=== PATIENT | female | born 1990 | race Asian ===

== ENCOUNTER 2018-08-27 10:11 | Emergency (ER) | payer BC ==
[~2018-08-27] VITALS: Ht 152.4 cm; Wt 56.7 kg
== END 2018-08-27 11:01 | disposition home or self-care (01) ==
LOC: FSED 10:11
DX: R50.9 Fever, unspecified (principal); R05 Cough; J11.1 Influenza due to unidentified influenza virus with other respiratory manifestations
CPT/HCPCS: 87400; 99283

== ENCOUNTER 2019-04-08 21:17 | Emergency (ER) | payer BC ==
[~2019-04-08] VITALS: Ht 152.4 cm; Wt 56.7 kg
--- OUTSIDE RECORDS SUMMARY | 2019-04-08 21:21 | XMS REPORT ---
Author Author [facility] Address Unknown Phone Unavailable Care Team Providers Care Type Cutter Name Role Phone Unavailable Unavailable Payers Payer Name Policy Type Policy Number Effective Date Expiration Date Problems This patient has no known problems. Allergies, Adverse Reactions, Alerts Allergy Name Allergy Type Status Severity Reaction(s) Onset Date Inactive Date Treating Clinician Comments No Known Allergies DA Active U 2018-12-20 00:00:00 penicillin G DA Active MO 2018-12-20 00:00:00 No Known Allergies DA Active U 2014-12-05 00:00:00 Medications This patient has no known medications. Results Test Description Test Time Test Comments Text Results Atomic Results Result Comments [facility] 2018-12-26 17:06:00 RUN DATE: 12/26/18 Spinal [place] PAGE 1 RUN TIME: 1706 Specimen Inquiry RUN USER: INTERFACE PATIENT: AMY MARIE LOC: [place] U #: [id number] AGE/SX: 28/F [facility]: Padmini Gomez MD : 91 BED: A DIS: 12/22/18 STATUS: DIS IN TLOC: SPEC #: [id number] RECD: 12/25/18 STATUS: [place] RE #: [id number] VINCE: 12/21/18- [facility] DR: Padmini Gomez MD ENTERED: 12/25/18 SP TYPE: OTHR DR: ORDERED: GROSS PROCEDURES: GROSS (12/26/18 133) TISSUES: PRODUCTS OF CONCEPTION, NOS CLINICAL HISTORY COLLECTION DATE: 12/21/18 IUP 16 3/7 WEEKS FINAL DIAGNOSIS Products of conception: SECOND TRIMESTER PLACENTA WITH MILD PERIVILLOUS FIBRINOID DEPOSITION NO VILLITIS OR INFARCTION PRESENT TRIVASCULAR UMBILICAL CORD, FREE OF INFLAMMATION MEMBRANES, FREE OF INFLAMMATION NEGATIVE FOR MALIGNANCY Fetus, passage: FETUS WITH EXTERNAL GENITALIA COMPATIBLE WITH IMMATURE FEMALE NO GROSS CONGENITAL ANOMALIES IDENTIFIED APPROXIMATELY 17 WEEKS ESTIMATED GESTATIONAL AGE BY MEASUREMENTS 16 3/7 WEEKS ESTIMATED GESTATIONAL AGE BY DATES RRB/marquita D [id number], [id number] MACROSCOPIC The specimen is received in formalin, labeled with the patient's name, and identified as "products of conception". The specimen consists of a 10 X 7 X 2 cm placental disc with bland, thickened, and opaque membranes. The placental disc weighs 96.4 gm with the membranes and umbilical cord removed. The surface is steel blue, wrinkled, and glistening and displays an unremarkable vasculature. The maternal surface is lobulated and intact. Serial sectioning displays homogenous and maroon spongy tissue. The trivascular umbilical cord measures 27 cm in length with a diameter of 0.7 cm and inserts 1.5 cm from the CONTINUED ON NEXT PAGE RUN DATE: 12/26/18 [facility] PAGE 2 RUN TIME: 1706 Specimen Inquiry RUN USER: INTERFACE SPEC #: [id number] PATIENT: AMY MARIE #[id number] (Continued) MACROSCOPIC (Continued) closest placental edge. No knots are present in the cord. The placenta is focally disrupted and the membranes appears to be incomplete. Received in the same container is a macerated immature fetus with no gross abnormalities. It measures as follow: crown rump 12.3, foot 1.9 cm head circumference of 8.5 cm. There is an attached umbilical cord with cord clamp. The cord measures 1.0 cm in length. The skin is dark bland with sloughing over the cranium and back. The abdominal wall is disrupted at the umbilicus which appears to be an artifactual defect. Intestinal loops protrude from the defect. The face is normally formed. The upper and lower extremeties are normally formed. The spine is straight with no defect. The external genitalia are compatible with an immature female. No gross malformations are identified. No sections of the fetus are submitted. Section code: 1A- membranes, maternal and ends of cord; 1B 1C- full thickness of placenta. GROSS PERFORMED AT [facility] [address] [place] [address] [phone])[phone] MICROSCOPIC All of the stains, including any controls performed, stain appropriately. MICROSCOPIC PERFORMED AT [facility] [address] [place] [address] [phone])[phone] PERFORMING SITE Diagnosis performed at: [facility], [address] [place] [address] Signed SIGNATURE ON FILE Salo Mendez MD 12/26/18 1700 END OF REPORT CBC W/AUTO DIFF 2018-12-22 06:09:00 WHITE BLOOD CELL (test code=WBC) 23.8 K/mm3 4.5-12.5 RED BLOOD CELL (test code=RBC) 3.79 mill/mm3 3.7-5.2 HEMOGLOBIN (test code=HGB) 11.0 gram/dL 11.5-15.5 HEMATOCRIT (test code=HCT) 33.1 % 36.0-46.0 MEAN CELL VOLUME (test code=MCV) 87.3 fL 80-98 MEAN CELL HGB (test code=MCH) 29.0 picogram 27.0-33.0 MEAN CELL HGB CONCETRATION (test code=MCHC) 33.2 gram/dL 33.0-36.0 RED CELL DISTRIBUTION WIDTH (test code=RDW) 12.2 % 11.6-16.2 RED CELL DISTRIBUTION WIDTH SD (test code=RDW-SD) 39.1 fL 37.0-51.0 PLATELET COUNT (test code=PLT) 253 K/mm3 150-450 RESULT VERIFIED BY REPEAT ANALYSIS MEAN PLATELET VOLUME (test code=MPV) 9.8 fL 6.7-11.0 NEUTROPHIL % (test code=NT%) 78.7 % 39.0-69.0 IMMATURE GRANULOCYTE % (test code=IG%) 0.5 % 0.0-5.0 LYMPHOCYTE % (test code=LY%) 14.0 % 25.0-55.0 MONOCYTE % (test code=MO%) 6.1 % 0.0-10.0 EOSINOPHIL % (test code=EO%) 0.5 % 0.0-5.0 BASOPHIL % (test code=BA%) 0.2 % 0.0-1.0 NUCLEATED RBC % (test code=NRBC%) 0.0 % 0-0 NEUTROPHIL # (test code=NT#) 18.69 K/mm3 1.8-7.7 IMMATURE GRANULOCYTE # (test code=IG#) 0.13 x10 3/uL 0-0.03 LYMPHOCYTE # (test code=LY#) 3.33 K/mm3 1.0-5.0 MONOCYTE # (test code=MO#) 1.46 K/mm3 0-0.8 EOSINOPHIL # (test code=EO#) 0.11 K/mm3 0.0-0.5 BASOPHIL # (test code=BA#) 0.05 K/mm3 0.0-0.2 NUCLEATED RBC # (test code=NRBC#) 0.00 K/mm3 0.0-0.1 MANUAL DIFF REQUIRED (test code=MDIFF) NO URINALYSIS [id number] 09:07:00* Test Item Value Reference Range Comments UA COLOR (test code=COLU) YELLOW YELLOW UA APPEARANCE (test code=APPU) Cloudy CLEAR UA GLUCOSE DIPSTICK (test code=DGLUU) NEGATIVE mg/dL NEGATIVE UA BILIRUBIN DIPSTICK (test code=BILU) NEGATIVE mg/dL NEGATIVE UA KETONE DIPSTICK (test code=KETU) NEGATIVE mg/dL NEGATIVE UA SPECIFIC GRAVITY (test code=SGU) 1.014 1.001-1.035 UA BLOOD DIPSTICK (test code=HUSSAIN) 3+ (Large) mg/dL NEGATIVE UA PH DIPSTICK (test code=DESTINY) 8.0 5.0-8.0 UA PROTEIN DIPSTICK (test code=PROU) NEGATIVE mg/dL NEGATIVE UA UROBILINIOGEN DIPSTICK (test code=URO) NEGATIVE mg/dL NEGATIVE UA NITRITE DIPSTICK (test code=ISRA) NEGATIVE NEGATIVE UA LEUKOCYTE ESTERASE W REFLEX (test code=LEUUR) NEGATIVE Clinton/uL NEGATIVE UA WBC (test code=WBCU) 0-5 per HPF 0-5 UA RBC (test code=RBCU) 3-5 #/HPF 0-5 UA WBC CLUMPS (test code=WBCUCL) 3-6 /HPF NONE UA EPITHELIAL CELLS (test code=EPIU) FEW per HPF FEW UA BACTERIA (test code=BACU) MANY #/HPF NONE UA RENAL CELLS (test code=BOYD) 6-10 #/HPF 0-5 UA AMORPHOUS SEDIMENT (test code=AMORU) MANY #/LPF NONE Urine Source? Clean CatchURINALYSIS [id number] 09:01:00* Test Item Value Reference Range Comments UA COLOR (test code=COLU) YELLOW YELLOW UA APPEARANCE (test code=APPU) Cloudy CLEAR UA GLUCOSE DIPSTICK (test code=DGLUU) NEGATIVE mg/dL NEGATIVE UA BILIRUBIN DIPSTICK (test code=BILU) NEGATIVE mg/dL NEGATIVE UA KETONE DIPSTICK (test code=KETU) NEGATIVE mg/dL NEGATIVE UA SPECIFIC GRAVITY (test code=SGU) 1.014 1.001-1.035 UA BLOOD DIPSTICK (test code=HUSSAIN) 3+ (Large) mg/dL NEGATIVE UA PH DIPSTICK (test code=DESTINY) 8.0 5.0-8.0 UA PROTEIN DIPSTICK (test code=PROU) NEGATIVE mg/dL NEGATIVE UA UROBILINIOGEN DIPSTICK (test code=URO) NEGATIVE mg/dL NEGATIVE UA NITRITE DIPSTICK (test code=ISRA) NEGATIVE NEGATIVE UA LEUKOCYTE ESTERASE W REFLEX (test code=LEUUR) NEGATIVE Clinton/uL NEGATIVE UA WBC (test code=WBCU) per HPF 0-5 UA RBC (test code=RBCU) 3-5 #/HPF 0-5 UA WBC CLUMPS (test code=WBCUCL) 3-6 /HPF NONE UA EPITHELIAL CELLS (test code=EPIU) FEW per HPF FEW UA BACTERIA (test code=BACU) MANY #/HPF NONE UA RENAL CELLS (test code=BOYD) 6-10 #/HPF 0-5 UA AMORPHOUS SEDIMENT (test code=AMORU) MANY #/LPF NONE Urine Source? Clean CatchURINALYSIS [id number] 08:43:00* Test Item Value Reference Range Comments UA COLOR (test code=COLU) YELLOW YELLOW UA APPEARANCE (test code=APPU) Cloudy CLEAR UA GLUCOSE DIPSTICK (test code=DGLUU) NEGATIVE mg/dL NEGATIVE UA BILIRUBIN DIPSTICK (test code=BILU) NEGATIVE mg/dL NEGATIVE UA KETONE DIPSTICK (test code=KETU) NEGATIVE mg/dL NEGATIVE UA SPECIFIC GRAVITY (test code=SGU) 1.014 1.001-1.035 UA BLOOD DIPSTICK (test code=HUSSAIN) 3+ (Large) mg/dL NEGATIVE UA PH DIPSTICK (test code=DESTINY) 8.0 5.0-8.0 UA PROTEIN DIPSTICK (test code=PROU) NEGATIVE mg/dL NEGATIVE UA UROBILINIOGEN DIPSTICK (test code=URO) NEGATIVE mg/dL NEGATIVE UA NITRITE DIPSTICK (test code=ISRA) NEGATIVE NEGATIVE UA LEUKOCYTE ESTERASE W REFLEX (test code=LEUUR) NEGATIVE Clinton/uL NEGATIVE UA WBC (test code=WBCU) per HPF 0-5 UA RBC (test code=RBCU) per HPF 0-5 UA EPITHELIAL CELLS (test code=EPIU) per HPF Few UA BACTERIA (test code=BACU) per HPF NONE Urine Source? Clean CatchHCG SERUM [id number] 00:05:00* Test Item Value Reference Range Comments HCG SERUM BETA (test code=HCG) 65985.0 mIU/mL 0-3 Interfering substances present in the serum of somepatients may cause a false-positive result in this assay.Questionable elevations in serum hCG should be confirmedwith a urine hCG. Suspected Trophoblastic Neoplasms shouldnot be diagnosed based on serun hCG/beta hCG alone. Theymust be confirmed by clinical history and tissue diagnosis.INTERPRETATION:B-HCG LEVELS <5 SHOULD BE CONSIDERED "NEGATIVE." *WHEN BODERLINE RESULTS ARE ENCOUNTERED,PATIENT SAMPLESSHOULD BE REDRAWN 48 HOURS. 0-1 WEEKS AFTER CONCEPTION 5-50 MIU/ML1-2 WEEKS AFTER CONCEPTION 50-500 MIU/ML2-3 WEEKS AFTER CONCEPTION 100 -5,000 MIU/ML3-4 WEEKS AFTER CONCEPTION 500-10,000 MIU/ML4-5 WEEKS AFTER CONCEPTION 1000 -50,000 MIU/ML5-6 WEEKS AFTER CONCEPTION 10,000-100,000 MIU/ML6-8 WEEKS AFTER CONCEPTION 15,000- 200,000 MIU/ML2-3 MONTHS AFTER CONCEPTION 10,000-100,000 MIU/ML COMPREHENSIVE METABOLIC [id number] 23:54:00* Test Item Value Reference Range Comments SODIUM (test code=NA) 139 mmol/L 136-145 POTASSIUM (test code=K) 3.8 mmol/L 3.5-5.1 CHLORIDE (test code=CL) 107.0 mmol/L 98-107 CARBON DIOXIDE (test code=CO2) 27.0 mmol/L 21-32 ANION GAP (test code=GAP) 8.8 10-20 GLUCOSE (test code=GLU) 125 mg/dL 74-106 BLOOD UREA NITROGEN (test code=BUN) 6 mg/dL 7-18 GLOMERULAR FILTRATION RATE (test code=GFR) > 60 mL/min >=60 Estimated GFR by using Modified MDRD formula.Chronic kidney disease is defined as either kidney damageor GFR <60 mL/min/1.73 m2 for >3 months. CREATININE (test code=CREAT) 0.60 mg/dL 0.55-1.02 Note change in reference range due to change in reagent. BUN/CREATININE RATIO (test code=BUN/CREA) 10.0 10-20 TOTAL PROTEIN (test code=PROT) 7.7 gram/dL 6.4-8.2 ALBUMIN (test code=ALB) 3.4 g/dL 3.4-5.0 GLOBULIN (test code=GLOB) 4.3 gram/dL 2.7-4.2 ALBUMIN/GLOBULIN RATIO (test code=A/G) 0.8 0.75-1.50 CALCIUM (test code=CA) 9.6 mg/dL 8.5-10.1 BILIRUBIN TOTAL (test code=BILT) 0.10 mg/dL 0.0-1.0 SGOT/AST (test code=AST) 69 IUnit/L 15-37 SGPT/ALT (test code=ALT) 160 IUnit/L 12-78 ALKALINE PHOSPHATASE TOTAL (test code=ALKP) 141 IUnit/L 45-117 Note change in reference range due to change in reagent. [id number] 23:41:00* Test Item Value Reference Range Comments FIBRINOGEN (test code=FIB) 544 mg/dL 200-400 COMPREHENSIVE METABOLIC [id number] 23:38:00* Test Item Value Reference Range Comments SODIUM (test code=NA) 139 mmol/L 136-145 POTASSIUM (test code=K) 3.8 mmol/L 3.5-5.1 CHLORIDE (test code=CL) 107.0 mmol/L 98-107 CARBON DIOXIDE (test code=CO2) mmol/L 21-32 ANION GAP (test code=GAP) 10-20 GLUCOSE (test code=GLU) mg/dL 74-106 BLOOD UREA NITROGEN (test code=BUN) mg/dL 7-18 GLOMERULAR FILTRATION RATE (test code=GFR) mL/min >=60 CREATININE (test code=CREAT) mg/dL 0.55-1.02 BUN/CREATININE RATIO (test code=BUN/CREA) 10-20 TOTAL PROTEIN (test code=PROT) gram/dL 6.4-8.2 ALBUMIN (test code=ALB) g/dL 3.4-5.0 GLOBULIN (test code=GLOB) gram/dL 2.7-4.2 ALBUMIN/GLOBULIN RATIO (test code=A/G) 0.75-1.50 CALCIUM (test code=CA) mg/dL 8.5-10.1 BILIRUBIN TOTAL (test code=BILT) mg/dL 0.0-1.0 SGOT/AST (test code=AST) IUnit/L 15-37 SGPT/ALT (test code=ALT) IUnit/L 12-78 ALKALINE PHOSPHATASE TOTAL (test code=ALKP) IUnit/L 45-117 CBC W/O [id number] 23:28:00* Test Item Value Reference Range Comments WHITE BLOOD CELL (test code=WBC) K/mm3 4.5-12.5 RED BLOOD CELL (test code=RBC) mill/mm3 3.7-5.2 HEMOGLOBIN (test code=HGB) gram/dL 11.5-15.5 HEMATOCRIT (test code=HCT) 36.0 % 36.0-46.0 MEAN CELL VOLUME (test code=MCV) fL 80-98 MEAN CELL HGB (test code=MCH) picogram 27.0-33.0 MEAN CELL HGB CONCETRATION (test code=MCHC) gram/dL 33.0-36.0 RED CELL DISTRIBUTION WIDTH (test code=RDW) % 11.6-16.2 PLATELET COUNT (test code=PLT) K/mm3 150-450 MEAN PLATELET VOLUME (test code=MPV) fL 6.7-11.0 CBC W/O [id number] 23:28:00* Test Item Value Reference Range Comments WHITE BLOOD CELL (test code=WBC) 18.6 K/mm3 4.5-12.5 RED BLOOD CELL (test code=RBC) 4.09 mill/mm3 3.7-5.2 HEMOGLOBIN (test code=HGB) 11.4 gram/dL 11.5-15.5 HEMATOCRIT (test code=HCT) 36.0 % 36.0-46.0 MEAN CELL VOLUME (test code=MCV) 88.0 fL 80-98 MEAN CELL HGB (test code=MCH) 27.9 picogram 27.0-33.0 MEAN CELL HGB CONCETRATION (test code=MCHC) 31.7 gram/dL 33.0-36.0 RED CELL DISTRIBUTION WIDTH (test code=RDW) 12.3 % 11.6-16.2 PLATELET COUNT (test code=PLT) 305 K/mm3 150-450 MEAN PLATELET VOLUME (test code=MPV) 9.8 fL 6.7-11.0 AMNISURE (ROM) [id number] 14:07:00* Test Item Value Reference Range Comments AMNISURE (ROM) TEST (test code=AMNI) POSITIVE NEGATIVE OPENED:11/05/2018 - US PREG AFTER [id number] 13:51:00 Name: AMY MARIE [facility] [place] : 1990 Age/S: 28 / F [address] [place] [address] Unit #: [id number] Loc: [place] [address] Phys: Haydee Almanza NP Acct: [id number] Dis Date: Status: REG ER PHONE #: [phone] Exam Date: 12/15/2018 1341 FAX #: [phone] Reason: Pelvic Pain EXAMS: CPT CODE: [id number] US PREG AFTER TRI 31047 ULTRASOUND; 1ST TRIMESTER: HISTORY: 15 week by dates. Leaking lots of fluid. COMPARISON EXAMS: No pertinent recent exams for comparison. TECHNIQUE: Sonographic evaluation was performed using high resolution B-mode, pulse and color Doppler imaging. FINDINGS: An intrauterine fetus is identified with average crown-rump length of 6.28 cm which corresponds to an ultrasound age of 12 weeks 5 days. cardiac activity was verified at 133 bpm. However, no amniotic fluid is identified. No evidence of placenta previa. The right ovary measures up to 3.0 cm with normal Doppler analysis. The left ovary measures up to 2.6 cm with normal Doppler analysis. No free fluid in the cul-de-sac. IMPRESSION: 1. Single intrauterine living fetus estimated to be 12 weeks 5 days ultrasound age. 2. No amniotic fluid identified. 3. Negative evaluation of the ovaries and adnexal regions. SL:01 at 1351 Reported and signed by: Ag Walter M.D. CC: Haydee Almanza NP Technologist: Mary Beth Conteh RDMS(Radha)(BR) Trnscb Date/Time: 12/15/2018 (3658) tVEDA Orig Print D/T: S: 12/15/2018 (3333) Probe: PAGE 1 Signed Report CBC W/AUTO [id number] 13:01:00* Test Item Value Reference Range Comments WHITE BLOOD CELL (test code=WBC) 17.51 x10 3/uL 4.5-11.0 RED BLOOD CELL (test code=RBC) 4.09 x10 6/uL 3.54-5.02 HEMOGLOBIN (test code=HGB) 12.2 g/dL 11.0-15.0 HEMATOCRIT (test code=HCT) 36.3 % 33.0-45.0 MEAN CELL VOLUME (test code=MCV) 88.8 fL 81.0-99.0 MEAN CELL HGB (test code=MCH) 29.8 pg 27.0-33.0 MEAN CELL HGB CONCETRATION (test code=MCHC) 33.6 g/dL 33.0-37.0 RED CELL DISTRIBUTION WIDTH CV (test code=RDW) 12.3 % 11.5-14.5 RED CELL DISTRIBUTION WIDTH SD (test code=RDW-SD) 40.3 fL 37.0-54.0 PLATELET COUNT (test code=PLT) 296 x10 3/uL 150-400 MEAN PLATELET VOLUME (test code=MPV) 9.9 fL 7.0-9.0 NEUTROPHIL % (test code=NT%) 73.0 % 56.0-77.0 IMMATURE GRANULOCYTE % (test code=IG%) 0.5 % 0.0-2.0 LYMPHOCYTE % (test code=LY%) 19.7 % 14.0-32.0 MONOCYTE % (test code=MO%) 5.5 % 4.8-9.0 EOSINOPHIL % (test code=EO%) 1.0 % 0.3-3.7 BASOPHIL % (test code=BA%) 0.3 % 0.0-2.0 NUCLEATED RBC % (test code=NRBC%) 0.0 % 0-0 NEUTROPHIL # (test code=NT#) 12.77 x10 3/uL 2.0-7.6 IMMATURE GRANULOCYTE # (test code=IG#) 0.09 x10 3/uL 0.00-0.03 LYMPHOCYTE # (test code=LY#) 3.45 x10 3/uL 1.0-3.8 MONOCYTE # (test code=MO#) 0.97 x10 3/uL 0.1-0.8 EOSINOPHIL # (test code=EO#) 0.18 x10 3/uL 0.0-0.2 BASOPHIL # (test code=BA#) 0.05 x10 3/uL 0.0-0.2 NUCLEATED RBC # (test code=NRBC#) 0.00 x10 3/uL 0.0-0.1 MANUAL DIFF REQUIRED (test code=MDIFF) NO URINALYSIS [id number] 12:54:00* Test Item Value Reference Range Comments UA COLOR (test code=COLU) YELLOW YEL/STRAW UA APPEARANCE (test code=APPU) SL CLOUDY CLEAR UA GLUCOSE DIPSTICK (test code=DGLUU) NEGATIVE NEGATIVE UA BILIRUBIN DIPSTICK (test code=BILU) NEGATIVE NEGATIVE UA KETONE DIPSTICK (test code=KETU) NEGATIVE NEGATIVE UA SPECIFIC GRAVITY (test code=SGU) 1.016 1.005-1.030 UA BLOOD DIPSTICK (test code=HUSSAIN) 1+ NEGATIVE UA PH DIPSTICK (test code=DESTINY) 6.0 5.0-7.0 UA PROTEIN DIPSTICK (test code=PROU) NEGATIVE NEGATIVE UA UROBILINIOGEN DIPSTICK (test code=URO) 0.2 mg/dL 0.2-1.0 UA NITRITE DIPSTICK (test code=ISRA) NEGATIVE NEGATIVE UA LEUKOCYTE ESTERASE DIPSTICK (test code=LEUU) NEGATIVE NEGATIVE UA WBC (test code=WBCU) 4-9 WBC/HPF 0-3 UA RBC (test code=RBCU) 21-50 RBC/HPF 0-3 UA BACTERIA (test code=BACU) TRACE /HPF NONE SEEN UA SQUAMOUS CELLS (test code=SQU) 0-5 /HPF NONE SEEN UA MUCUS (test code=MUCU) TRACE /LPF NONE SEEN COMMENTS: Clean CatchCHEMISTRY 8 [id number] 12:35:00* Test Item Value Reference Range Comments ISTAT-SODIUM (test code=NAP) MMOL/L 134-147 ISTAT-POTASSIUM (test code=KP) MMOL/L 3.4-5.0 ISTAT-CHLORIDE (test code=CLP) MMOL/L 100-108 ISTAT CARBON DIOXIDE (test code=ISTAT-CO2) mmol/L 21-33 ISTAT CALCIUM IONIZED (test code=ISTAT-LAZARA) MG/DL 1.12-1.32 ISTAT-GLUCOSE (test code=GLUP) MG/DL 70-110 ISTAT-BUN (test code=BUNP) MG/DL 7-18 BEDSIDE CREATININE (test code=CREATBED) MG/DL 0.6-1.3 GLOMERULAR FILTRATION RATE POC (test code=GFRBED) 204 ML/MIN CHEMISTRY 8 [id number] 12:35:00* Test Item Value Reference Range Comments ISTAT-SODIUM (test code=NAP) 138 MMOL/L 134-147 ISTAT-POTASSIUM (test code=KP) 3.4 MMOL/L 3.4-5.0 ISTAT-CHLORIDE (test code=CLP) 105 MMOL/L 100-108 Performed by certified dye tub operator at [facility] ISTAT CARBON DIOXIDE (test code=ISTAT-CO2) 24.0 mmol/L 21-33 ISTAT CALCIUM IONIZED (test code=ISTAT-LAZARA) 1.17 MG/DL 1.12-1.32 ISTAT-GLUCOSE (test code=GLUP) 83 MG/DL 70-110 ISTAT-BUN (test code=BUNP) 4 MG/DL 7-18 BEDSIDE CREATININE (test code=CREATBED) 0.4 MG/DL 0.6-1.3 GLOMERULAR FILTRATION RATE POC (test code=GFRBED) 204 ML/MIN
[2019-04-08] MEDS ORDERED: METHYLPREDNISOLONE SOD SUCC 125 MG/2ML VIAL IM ONE (21:30)
[2019-04-08] MEDS ORDERED: FAMOTIDINE 20 MG TAB PO ONE (21:30)
[2019-04-08] MEDS ORDERED: DIPHENHYDRAMINE HCL 25 MG CAP PO ONE (21:30)
[2019-04-08 22:01] VITALS: BP 112/56
== END 2019-04-08 22:20 | disposition home or self-care (01) ==
LOC: ER 21:17
DX: T78.3XXA Angioneurotic edema, initial encounter (principal); T39.314A Poisoning by propionic acid derivatives, undetermined, initial encounter
CPT/HCPCS: 96372; 99282; J2930